=== PATIENT | male | born 1950 | race Caucasian/White ===

== ENCOUNTER 2017-08-19 15:24 | Inpatient (IN) | payer MEDICARE, SELFPAY ==
[2017-08-19] VITALS (16 sets, daily range): BP systolic 87–137; BP diastolic 70–111; PULSE 97–148; RESP 12–25; TEMP 36.1–38; O2SAT 97–100; BMI 32.4
--- NOTE | 2017-08-19 15:49 | ED.WEAKNESS ---
HPI - Weakness General Chief complaint: Weakness Stated complaint: LOW BLOOD PRESSURE,ELEVATED HR AND SOB Time Seen by Provider: 08/19/17 15:45 Source: patient Mode of arrival: ambulatory Limitations: no limitations History of Present Illness HPI Narrative: Patient presents to the emergency department today with a chief complaint of gradually worsening shortness of breath and weakness over the past few days which has been worsening. Last night he had a large amount of dark emesis. He denies any bright red blood or dark stools. He is dizzy, weak and lightheaded, particularly with standing up or any exertion. He denies any history of the same but has a longstanding history of alcohol abuse. He denies any history of EGD. He takes Motrin 800 daily for his back pain but denies any other NSAIDs or use of blood thinners. He denies any history of varices, ulcers or gastritis. MD Complaint: generalized weakness Onset (ago): day(s) Duration: constant Location: generalized Migration: none Severity: moderate Relieving factors: none Exacerbating factors: movement Associated symptoms: loss of appetite, nausea/vomiting and shortness of breath Related Data Home Medications Medication Instructions Recorded Confirmed trazodone 1 - 2 tab PO HSP PRN 08/19/17 08/19/17 Previous Rx's Medication Instructions Recorded atorvastatin [Lipitor] 20 mg PO HS #30 tab 11/24/16 venlafaxine [Effexor XR] 75 mg PO QDAY #90 cap 12/08/16 Allergies Allergy/AdvReac Type Severity Reaction Status Date / Time fentanyl [FENTANYL] Allergy Severe STOPPED Verified 08/19/17 15:30 BREATHING Review of Systems Review of Systems All systems reviewed & are unremarkable except as noted in HPI and below Constitutional Denies chills, Denies fever(s), Denies lethargy and Denies weakness Eyes Denies change in vision, Denies eye discharge, Denies irritation and Denies loss of vision ENT Ears, Nose, Mouth, and Throat: Denies change in voice, Denies neck pain and Denies sore throat Cardiovascular Denies chest pain, Denies irregular heart rhythm, Denies lightheadedness, Denies palpitations, Reports dyspnea, Denies dyspnea on exertion and Denies orthopnea Respiratory Denies cough, Reports dyspnea, Denies dyspnea on exertion and Denies wheezing Gastrointestinal Gastrointestinal: Denies abdominal pain, Denies change in bowel habits, Reports coffee ground emesis, Denies diarrhea, Reports nausea and Reports vomiting Genitourinary Denies hematuria, Denies flank pain, Denies urinary incontinence and Denies urinary urgency Musculoskeletal Denies neck pain Integumentary/Breasts Denies pruritus, Denies erythema, Denies rash and Denies wounds Neurologic Denies confusion, Denies loss of vision and Denies weakness Psychiatric Denies anxiety, Denies confusion, Denies depression, Denies homicidal ideation and Denies suicidal ideation Endocrine Denies palpitations Hematologic/Lymphatic Denies easy bruising Allergic/Immunologic Denies wheezing PFSH Surgical History History of hip replacement Social History Smoking Status: Never smoker Exam Narrative Exam Narrative: Pleasant 66-year-old male in moderate distress. Initial Vital Signs Initial Vital Signs: Vital Signs Temperature 97.0 F L 08/19/17 15:30 Pulse Rate 148 H 08/19/17 15:30 Respiratory Rate 20 08/19/17 15:30 Blood Pressure 134/77 H 08/19/17 15:30 Pulse Oximetry 100 08/19/17 15:30 Const General: cooperative, acute distress and ill appearing Nutritional Appearance: well nourished Orientation: alert, awake, oriented x3 and oriented to person [facility] Head: normocephalic and atraumatic Ears: external ears normal Nose: external nose normal and No nasal discharge Face and sinus: sinuses nontender, face symmetric, no sinus tenderness and No dry mucous membranes Mouth: oral mucosae normal and moist mucous membranes Teeth and gingiva: dentition normal Throat: tonsils normal and uvula midline Eyes General: appearance normal, both eyes and all related structures Conjunctivae: conjunctival abnormality (Pale) bilaterally Sclera: sclerae normal Pupils: PERRL EOM: EOM intact bilaterally Resp Effort & Inspection: normal respiratory effort, able to speak in complete sentences, no respiratory distress and no use of accessory muscles Auscultation: clear to auscultation bilaterally, no rales, no rhonchi and no wheezes Cardio Rate: tachycardic Rhythm: regular rhythm Heart Sounds: no click, no gallops, no murmurs and no rubs Pulses: normal peripheral pulses GI Inspection: non-distended Palpation: soft, no hepatosplenomegaly, No guarding, No pulsatile mass and No tender Auscultation: normal bowel sounds Skin General: pallor and cool/cold Neuro General: alert, oriented x3, gait normal and no focal motor deficits Speech: speech normal Course Orders Ordered: ED Orders 08/19/17 15:41 EKG-12 Lead Stat 08/19/17 15:47 Packed Cells Stat Type and Screen Stat 08/19/17 15:48 Alanine Aminotransferase Stat Aspartate Aminotransferase Stat Basic Metabolic Panel Stat Complete Blood Count AUTO DIFF Stat Lipase Stat Prothrombin Time INR Stat Troponin I Stat 08/19/17 16:27 XR chest 1V Stat Sodium Chloride (Normal Saline 0.9%) 1,000 mls @ 150 mls/hr IV CONT DARIEL Last Admin: 08/19/17 16:16 Dose: Discontinued Medications Pantoprazole Sodium (Protonix) 40 mg IV NOW ONE Stop: 08/19/17 16:39 Last Admin: 08/19/17 16:39 Dose: 40 mg Consultations Consultation #1: Called to on-call general surgery to be sure they are comfortable providing surgical backup and likely endoscopy given patient's history of alcohol abuse. Dr. Covarrubias is happy to be involved given the unlikely event varices in this patient pending results of lab tests Time: 16:38 Consultation #2: Dr. Hernandez happy to accept. Time: 18:50 Vital Signs - 8 hr 08/19/17 15:30 08/19/17 16:05 08/19/17 16:14 Temperature 97.0 F L Pulse Rate 148 H 112 H Pulse Rate [Orthostatic Lying] 106 H Pulse Rate [Orthostatic Sitting] 117 H Pulse Rate [Orthostatic Standing] 140 H Respiratory Rate 20 22 Blood Pressure 134/77 H Blood Pressure [Left Arm] 112/81 H Blood Pressure [Orthostatic Lying] 112/81 H Blood Pressure [Orthostatic Sitting] 87/72 L Blood Pressure [Orthostatic Standing] 96/84 H Pulse Oximetry 100 100 08/19/17 16:16 08/19/17 16:44 08/19/17 17:00 Temperature Pulse Rate 127 H 109 H 106 H Pulse Rate [Orthostatic Lying] Pulse Rate [Orthostatic Sitting] Pulse Rate [Orthostatic Standing] Respiratory Rate 14 22 20 Blood Pressure Blood Pressure [Left Arm] 101/82 H 110/84 H 91/73 Blood Pressure [Orthostatic Lying] Blood Pressure [Orthostatic Sitting] Blood Pressure [Orthostatic Standing] Pulse Oximetry 100 100 100 08/19/17 17:41 08/19/17 17:48 08/19/17 18:05 Temperature 100.3 F H 99.8 F H 99.8 F H Pulse Rate 106 H 112 H 112 H Pulse Rate [Orthostatic Lying] Pulse Rate [Orthostatic Sitting] Pulse Rate [Orthostatic Standing] Respiratory Rate 16 25 H 18 Blood Pressure 115/81 H 118/90 H 114/70 Blood Pressure [Left Arm] Blood Pressure [Orthostatic Lying] Blood Pressure [Orthostatic Sitting] Blood Pressure [Orthostatic Standing] Pulse Oximetry 08/19/17 18:33 Temperature 100.4 F H Pulse Rate 110 H Pulse Rate [Orthostatic Lying] Pulse Rate [Orthostatic Sitting] Pulse Rate [Orthostatic Standing] Respiratory Rate 14 Blood Pressure 134/91 H Blood Pressure [Left Arm] Blood Pressure [Orthostatic Lying] Blood Pressure [Orthostatic Sitting] Blood Pressure [Orthostatic Standing] Pulse Oximetry MDM - Weakness Differential Diagnosis Differential diagnosis: Likely anemia, hypoglycemia, rhabdomyolysis, sepsis and dehydration Medical Records Attestation: I reviewed the patient's medical records. Lab Data Result diagrams: 08/19/17 15:48 08/19/17 15:48 Lab Results 08/19/17 08/19/17 08/19/17 Range/Units 15:47 15:48 15:48 WBC 13.4 H (4.5-11.0) X10^3/uL RBC 3.15 L (4.5-5.9) X10^6/uL Hgb 7.9 L (13.5-17.5) g/dL Hct 25.5 L (41-53) % MCV 81.1 (80-100) fL MCH 25.2 L (26-34) PG MCHC 31.0 (30-36) % RDW 21.8 H (11.6-14.8) % Plt Count 244 (150-400) X10^3/uL Neut % (Auto) 72.9 (50-75) % Lymph % (Auto) 16.8 L (25-40) % [place] % (Auto) 9.1 (3-14) % Eos % (Auto) 0.5 L (2-4) % Baso % (Auto) 0.7 (0-2) % Neut # (Auto) 9800 H (6050-5454) /uL RBC Morphology Not Reportable Polychromasia 2+ H Hypochromasia 2+ H Anisocytosis 2+ H PT 12.9 H (10.1-12.7) SECONDS INR 1.2 (0.9-1.3) Sodium (137-145) mmol/L Potassium (3.4-5.1) mmol/L Chloride (98-107) mmol/L Carbon Dioxide (22-32) mmol/L BUN (9-20) mg/dL Creatinine (0.66-1.25) mg/dL Estimated GFR (>60) mL/min BUN/Creatinine Ratio (6-22) Glucose (80-110) mg/dL Calcium (8.4-10.2) mg/dL AST (17-59) IU/L ALT (21-72) IU/L Troponin I (0.01-0.034) ng/mL Lipase (23-300) U/L Blood Type O Positive Antibody Screen Negative Crossmatch ([facility]) See Detail 08/19/17 08/19/17 08/19/17 Range/Units 15:48 15:48 15:48 WBC (4.5-11.0) X10^3/uL RBC (4.5-5.9) X10^6/uL Hgb (13.5-17.5) g/dL Hct (41-53) % MCV (80-100) fL MCH (26-34) PG MCHC (30-36) % RDW (11.6-14.8) % Plt Count (150-400) X10^3/uL Neut % (Auto) (50-75) % Lymph % (Auto) (25-40) % [place] % (Auto) (3-14) % Eos % (Auto) (2-4) % Baso % (Auto) (0-2) % Neut # (Auto) (1291-9385) /uL RBC Morphology Polychromasia Hypochromasia Anisocytosis PT (10.1-12.7) SECONDS INR (0.9-1.3) Sodium 141 (137-145) mmol/L Potassium 3.9 (3.4-5.1) mmol/L Chloride 99 (98-107) mmol/L Carbon Dioxide 20 L (22-32) mmol/L BUN 47 H (9-20) mg/dL Creatinine 1.20 (0.66-1.25) mg/dL Estimated GFR > 60.0 (>60) mL/min BUN/Creatinine Ratio 39.2 H (6-22) Glucose 129 H (80-110) mg/dL Calcium 10.2 (8.4-10.2) mg/dL AST 59 (17-59) IU/L ALT 37 (21-72) IU/L Troponin I < 0.012 (0.01-0.034) ng/mL Lipase (23-300) U/L Blood Type Cancelled Antibody Screen Cancelled Crossmatch ([facility]) 08/19/17 Range/Units 15:48 WBC (4.5-11.0) X10^3/uL RBC (4.5-5.9) X10^6/uL Hgb (13.5-17.5) g/dL Hct (41-53) % MCV (80-100) fL MCH (26-34) PG MCHC (30-36) % RDW (11.6-14.8) % Plt Count (150-400) X10^3/uL Neut % (Auto) (50-75) % Lymph % (Auto) (25-40) % [place] % (Auto) (3-14) % Eos % (Auto) (2-4) % Baso % (Auto) (0-2) % Neut # (Auto) (6212-3469) /uL RBC Morphology Polychromasia Hypochromasia Anisocytosis PT (10.1-12.7) SECONDS INR (0.9-1.3) Sodium (137-145) mmol/L Potassium (3.4-5.1) mmol/L Chloride (98-107) mmol/L Carbon Dioxide (22-32) mmol/L BUN (9-20) mg/dL Creatinine (0.66-1.25) mg/dL Estimated GFR (>60) mL/min BUN/Creatinine Ratio (6-22) Glucose (80-110) mg/dL Calcium (8.4-10.2) mg/dL AST (17-59) IU/L ALT (21-72) IU/L Troponin I (0.01-0.034) ng/mL Lipase 225 (23-300) U/L Blood Type Antibody Screen Crossmatch ([facility]) Discharge Plan Departure Patient Disposition: Admitted As Inpatient Clinical Impression: Acute upper gastrointestinal bleeding Prescriptions: No Action atorvastatin [Lipitor] 20 MG tablet 20 mg PO HS Qty: 30 RF: 0 venlafaxine [Effexor XR] 75 MG capsule,extended release 24hr 75 mg PO QDAY Qty: 90 RF: 1 trazodone 50 MG tablet 1 - 2 tab PO HSP PRN (Reason: Insomnia) RF: 0
[2017-08-19 16:01] LABS: Add Manual Diff / Slide Review NO; Basophils Percent Auto 0.7 % (0-2); Eosinophils Percent Auto 0.5 % (2-4); Hematocrit 25.5 % (41-53); Hemoglobin 7.9 g/dL (13.5-17.5); Lymphocytes Percent Auto 16.8 % (25-40); Mean Corpuscular Hemoglobin 25.2 PG (26-34); Mean Corpuscular Volume 81.1 fL (80-100); Monocytes Percent Auto 9.1 % (3-14); Neutrophils Absolute Auto 9800 /uL (3000-5900); Neutrophils Percent Auto 72.9 % (50-75); Platelet Count 244 X10^3/uL (150-400); Red Blood Cell Count 3.15 X10^6/uL (4.5-5.9); Red Cell Distribution Width 21.8 % (11.6-14.8); White Blood Cell Count 13.4 X10^3/uL (4.5-11.0)
[2017-08-19 16:09] LABS: INR 1.2 (0.9-1.3); Prothrombin Time 12.9 SECONDS (10.1-12.7)
--- NOTE | 2017-08-19 16:15 | PC.NURSE ---
Patient felt weak and dizzy during the standing portion of orthostatics so he sat back down.
--- NOTE | 2017-08-19 16:27 | DI.RAD.S_ITS ---
PROCEDURE: XR CHEST 1V INDICATIONS: anemia, sob TECHNIQUE: One view of the chest was acquired. COMPARISON: None. FINDINGS: Surgical changes and devices: None. Lungs and pleura: No pleural effusions or pneumothorax. Lungs are clear. Mediastinum: Mediastinal contours appear normal. Heart size is normal. Bones and chest wall: No suspicious bony lesions. Overlying soft tissues appear unremarkable. IMPRESSION: Elevated left hemidiaphragm to a mild degree. Linear atelectasis left lung base, stable over time. The source of new shortness of breath is not found. Dictated by: Jeremiah Daley M.D. on 08/19/2017 at 16:56 Approved by: Jeremiah Daley M.D. on 08/19/2017 at 16:56
[2017-08-19 16:36] LABS: BUN Creatinine Ratio 39.2 (6-22); Blood Urea Nitrogen 47 mg/dL (9-20); Calcium 10.2 mg/dL (8.4-10.2); Carbon Dioxide 20 mmol/L (22-32); Chloride 99 mmol/L (98-107); Estimated Glomerular Filt Rate > 60.0 mL/min (>60); Glucose 129 mg/dL (80-110); HEMOLYSIS < 15 (0-50); Potassium 3.9 mmol/L (3.4-5.1); Sodium 141 mmol/L (137-145)
[2017-08-19] MEDS: PANTOPRAZOLE 40 MG VIAL IV ×2 (16:39→22:56)
--- NOTE | 2017-08-19 16:50 | PC.NURSE ---
Pt states he has been a heavy drinker for 'many years'. Recently cut back dramatically and most recent drink Wednesday. Denies h/o GI bleed, esophogeal verices, black / bloody stool. Vomited x 1 yesterday after dinner 'dark'. Denies nausea now.
[2017-08-19 17:04] LABS: Hypochromasia 2+; Polychromasia 2+
[2017-08-19 17:05] LABS: Anisocytosis 2+
[2017-08-19 17:16] LABS: Troponin I < 0.012 ng/mL (0.01-0.034)
[2017-08-19 18:30] LABS: Alanine Aminotransferase 37 IU/L (21-72); Aspartate Aminotransferase 59 IU/L (17-59); Lipase 225 U/L (23-300)
--- NOTE | 2017-08-19 19:23 | PM.CN ---
History of Present Illness Date Patient Seen: 08/19/17 Time Patient Seen: 19:24 Chief complaint: LOW BLOOD PRESSURE,ELEVATED HR AND SOB Reason for consult: Symptomatic anemia and hematemesis Requesting provider: Elías Hernandez Narrative: 66-year-old male with prior history of alcohol abuse and alcoholic pancreatitis but no known cirrhosis of the liver presents the emergency department this evening with dizziness, lightheadedness, fatigue, and shortness of breath following a single episode him at emesis last evening. Patient states he was in his usual state of health and tolerated ate dinner consisting of roast beef, broccoli, and rice last night without dysphagia, nausea, or pain when shortly thereafter he began to feel unwell. He then vomited a single time of partially digested food and copious amounts of dark material. No bright red blood. He had a normal bowel movement yesterday prior to the episode but no bowel function since then. He is having absolutely no dysphagia, odynophagia, chest pain, or abdominal pain. He has no recent history of melena, hematochezia, or bright red blood per rectum. In fact, [facility] small benign polyps were removed. He has never had any similar episodes of hematemesis or anemia. He has no known ulcer disease. No known esophageal varices. He does, however, take ibuprofen at least 4 times per day on a scheduled basis for low back pain and has done so for 3 years now. His hemoglobin at admission was approximately 7.9. Surgical consultation is now obtained for symptomatic anemia and probable upper gastrointestinal hemorrhage. [facility] Medical History Colon polyps (Acute) Depression (Acute) Hyperlipidemia (Acute) Insomnia (Chronic) Low back pain (Chronic) Surgical History Colonoscopy planned (Inactive) Status post total hip replacement, right (Inactive) History of hip replacement Social History lives independently: Yes Smoking Status: Never smoker additional social history: Prior heavy drinker of alcohol daily. States he has not drink significant alcohol for about 8 years since his episode of alcoholic pancreatitis. Meds Home Medications Medication Instructions Recorded Confirmed Type atorvastatin [Lipitor] 20 mg PO HS #30 tab 11/24/16 08/19/17 Rx venlafaxine [Effexor XR] 75 mg PO QDAY #90 cap 12/08/16 08/19/17 Rx trazodone 1 - 2 tab PO HSP PRN 08/19/17 08/19/17 History Allergies Allergy/AdvReac Type Severity Reaction Status Date / Time fentanyl [FENTANYL] Allergy Severe STOPPED Verified 08/19/17 15:30 BREATHING Review of Systems Review of Systems All systems reviewed & are unremarkable except as noted in HPI and below Exam Vital Signs (past 8 hours): Vital Signs - 8 hr 08/19/17 15:30 08/19/17 16:05 08/19/17 16:14 Temperature 97.0 F L Pulse Rate 148 H 112 H Pulse Rate [Orthostatic Lying] 106 H Pulse Rate [Orthostatic Sitting] 117 H Pulse Rate [Orthostatic Standing] 140 H Respiratory Rate 20 22 Blood Pressure 134/77 H Blood Pressure [Left Arm] 112/81 H Blood Pressure [Orthostatic Lying] 112/81 H Blood Pressure [Orthostatic Sitting] 87/72 L Blood Pressure [Orthostatic Standing] 96/84 H Pulse Oximetry 100 100 08/19/17 16:16 08/19/17 16:44 08/19/17 17:00 Temperature Pulse Rate 127 H 109 H 106 H Pulse Rate [Orthostatic Lying] Pulse Rate [Orthostatic Sitting] Pulse Rate [Orthostatic Standing] Respiratory Rate 14 22 20 Blood Pressure Blood Pressure [Left Arm] 101/82 H 110/84 H 91/73 Blood Pressure [Orthostatic Lying] Blood Pressure [Orthostatic Sitting] Blood Pressure [Orthostatic Standing] Pulse Oximetry 100 100 100 08/19/17 17:41 08/19/17 17:48 08/19/17 18:05 Temperature 100.3 F H 99.8 F H 99.8 F H Pulse Rate 106 H 112 H 112 H Pulse Rate [Orthostatic Lying] Pulse Rate [Orthostatic Sitting] Pulse Rate [Orthostatic Standing] Respiratory Rate 16 25 H 18 Blood Pressure 115/81 H 118/90 H 114/70 Blood Pressure [Left Arm] Blood Pressure [Orthostatic Lying] Blood Pressure [Orthostatic Sitting] Blood Pressure [Orthostatic Standing] Pulse Oximetry 08/19/17 18:30 08/19/17 18:33 08/19/17 18:48 Temperature 100.4 F H 100 F H Pulse Rate 111 H 110 H 109 H Pulse Rate [Orthostatic Lying] Pulse Rate [Orthostatic Sitting] Pulse Rate [Orthostatic Standing] Respiratory Rate 18 14 20 Blood Pressure 134/91 H 122/89 H Blood Pressure [Left Arm] 137/111 H Blood Pressure [Orthostatic Lying] Blood Pressure [Orthostatic Sitting] Blood Pressure [Orthostatic Standing] Pulse Oximetry 100 08/19/17 19:00 08/19/17 19:06 Temperature 100.1 F H Pulse Rate 106 H 106 H Pulse Rate [Orthostatic Lying] Pulse Rate [Orthostatic Sitting] Pulse Rate [Orthostatic Standing] Respiratory Rate 22 14 Blood Pressure 124/84 H Blood Pressure [Left Arm] 124/99 H Blood Pressure [Orthostatic Lying] Blood Pressure [Orthostatic Sitting] Blood Pressure [Orthostatic Standing] Pulse Oximetry 99 Pulse Oximetry 99 Oxygen Delivery Method Room Air Narrative Exam Narrative: Patient is sitting upright in the gurney in the emergency department at the time my visit. He is in no acute distress. Alert oriented x3. He is receiving blood transfusion at the time of my evaluation. He denies dizziness or shortness of breath currently. Sclera nonicteric Neck is supple Chest clear to auscultation He is in sinus tachycardia at a rate of 116 beats per minute at the time of my visit. Blood pressure is 122/89. Abdomen is soft, nondistended, nontender, no masses. No hepatomegaly. No ascites. Extremities show no clubbing or cyanosis Objective Labs Result Diagrams: 08/19/17 15:48 08/19/17 15:48 Labs: Laboratory Results - last 24 hr 08/19/17 08/19/17 08/19/17 15:47 15:48 15:48 WBC 13.4 H RBC 3.15 L Hgb 7.9 L Hct 25.5 L MCV 81.1 MCH 25.2 L MCHC 31.0 RDW 21.8 H Plt Count 244 Neut % (Auto) 72.9 Lymph % (Auto) 16.8 L [place] % (Auto) 9.1 Eos % (Auto) 0.5 L Baso % (Auto) 0.7 Neut # (Auto) 9800 H RBC Morphology Not Reportable Polychromasia 2+ H Hypochromasia 2+ H Anisocytosis 2+ H PT 12.9 H INR 1.2 Sodium Potassium Chloride Carbon Dioxide BUN Creatinine Estimated GFR BUN/Creatinine Ratio Glucose Calcium AST ALT Troponin I Lipase Blood Type O Positive Antibody Screen Negative Crossmatch ([facility]) See Detail 08/19/17 08/19/17 08/19/17 15:48 15:48 15:48 WBC RBC Hgb Hct MCV MCH MCHC RDW Plt Count Neut % (Auto) Lymph % (Auto) [place] % (Auto) Eos % (Auto) Baso % (Auto) Neut # (Auto) RBC Morphology Polychromasia Hypochromasia Anisocytosis PT INR Sodium 141 Potassium 3.9 Chloride 99 Carbon Dioxide 20 L BUN 47 H Creatinine 1.20 Estimated GFR > 60.0 BUN/Creatinine Ratio 39.2 H Glucose 129 H Calcium 10.2 AST 59 ALT 37 Troponin I < 0.012 Lipase Blood Type Cancelled Antibody Screen Cancelled Crossmatch ([facility]) 08/19/17 15:48 WBC RBC Hgb Hct MCV MCH MCHC RDW Plt Count Neut % (Auto) Lymph % (Auto) [place] % (Auto) Eos % (Auto) Baso % (Auto) Neut # (Auto) RBC Morphology Polychromasia Hypochromasia Anisocytosis PT INR Sodium Potassium Chloride Carbon Dioxide BUN Creatinine Estimated GFR BUN/Creatinine Ratio Glucose Calcium AST ALT Troponin I Lipase 225 Blood Type Antibody Screen Crossmatch ([facility]) Assessment & Plan Plan: Plan: 66-year-old male with symptomatic anemia secondary to gastrointestinal hemorrhage likely of an upper intestinal source. His liver function tests, coagulation studies, and lipase are all within normal range. I doubt that he has esophageal varices secondary to undiagnosed cirrhosis, especially since he has no significant active alcohol intake per his report. Most likely diagnosis would be significant gastritis or gastric ulceration secondary to significant NSAID use. Possibility of duodenal ulcer as well. I doubt neoplasm but this is also a possibility. At this time the patient requires significant fluid and blood product resuscitation to stabilize his heart rate and blood pressure. Would continue to monitor his hemoglobin levels periodically in the event he has ongoing acute hemorrhage. I did mention to him that there is a small possibility of significant acute major hemorrhage would require more emergent intervention. Otherwise I would plan EGD tomorrow once he has been adequately volume resuscitated. Agree with proton pump inhibitor therapy and bowel rest at the moment. Obviously avoid all NSAIDs. I discussed the technical details of EGD under anesthesia with the patient. He requires anesthesia given his comorbid medical conditions, possibility of significant bleeding requiring prolonged endoscopic procedure, and his documented allergy to fentanyl which inhibits my ability to perform conscious sedation. Risks, benefits, and alternatives were explained. Risks including but not limited to anesthesia, aspiration, nondiagnostic study, missed lesion, esophageal perforation, gastric perforation, duodenal perforation, need for major thoracic surgery, need for major abdominal surgery, and all attendant risks of major surgery were explained at length. He also understands that even following successful intervention for an obvious bleeding source that recurrent bleeding in the future is a possibility. In that event he may require repeat EGD or other intervention. I also discussed the small possibility of esophageal varices being present as the source of his hemorrhage. He understands we are not adequate to deal with endoscopic control of varices at this institution. Under those circumstances he would require referral to a tertiary center where such facilities are available. However, many times that can be done electively as well which I have mentioned to him. I also discussed the small possibility of significant major acute bleeding that could not be controlled endoscopically therefore requiring urgent laparotomy and surgical intervention. He also understands and agrees to further transfusion as needed. All questions were answered to his satisfaction, and he voiced understanding. Consent was placed on the chart. We will proceed as above.
--- NOTE | 2017-08-19 19:40 | P.CONS_ITS ---
History of Present Illness Date Patient Seen: 08/19/17 Time Patient Seen: 19:24 Chief complaint: LOW BLOOD PRESSURE,ELEVATED HR AND SOB Reason for consult: Symptomatic anemia and hematemesis Requesting provider: Elías Hernandez Narrative: 66-year-old male with prior history of alcohol abuse and alcoholic pancreatitis but no known cirrhosis of the liver presents the emergency department this evening with dizziness, lightheadedness, fatigue, and shortness of breath following a single episode him at emesis last evening. Patient states he was in his usual state of health and tolerated ate dinner consisting of roast beef, broccoli, and rice last night without dysphagia, nausea, or pain when shortly thereafter he began to feel unwell. He then vomited a single time of partially digested food and copious amounts of dark material. No bright red blood. He had a normal bowel movement yesterday prior to the episode but no bowel function since then. He is having absolutely no dysphagia, odynophagia, chest pain, or abdominal pain. He has no recent history of melena, hematochezia , or bright red blood per rectum. In fact, [facility] only several small benign polyps were removed. He has never had any similar episodes of hematemesis or anemia. He has no known ulcer disease. No known esophageal varices. He does, however, take ibuprofen at least 4 times per day on a scheduled basis for low back pain and has done so for 3 years now. His hemoglobin at admission was approximately 7.9. Surgical consultation is now obtained for symptomatic anemia and probable upper gastrointestinal hemorrhage. [facility] Medical History Colon polyps (Acute) Depression (Acute) Hyperlipidemia (Acute) Insomnia (Chronic) Low back pain (Chronic) Surgical History Colonoscopy planned (Inactive) Status post total hip replacement, right (Inactive) History of hip replacement Social History lives independently: Yes Smoking Status: Never smoker additional social history: Prior heavy drinker of alcohol daily. States he has not drink significant alcohol for about 8 years since his episode of alcoholic pancreatitis. Meds Home Medications Medication Instructions Recorded Confirmed Type atorvastatin [Lipitor] 20 mg PO HS #30 tab 11/24/16 08/19/17 Rx venlafaxine [Effexor XR] 75 mg PO QDAY #90 cap 12/08/16 08/19/17 Rx trazodone 1 - 2 tab PO HSP PRN 08/19/17 08/19/17 History Allergies Allergy/AdvReac Type Severity Reaction Status Date / Time fentanyl [FENTANYL] Allergy Severe STOPPED Verified 08/19/17 15:30 BREATHING Review of Systems Review of Systems All systems reviewed & are unremarkable except as noted in HPI and below Exam Vital Signs (past 8 hours): Vital Signs - 8 hr 3 08/19/17 15:30 08/19/17 16:05 08/19/17 16:14 Temperature 97.0 F L Pulse Rate 148 H 112 H Pulse Rate [Orthostatic Lying] 106 H Pulse Rate [Orthostatic Sitting] 117 H Pulse Rate [Orthostatic Standing] 140 H Respiratory Rate 20 22 Blood Pressure 134/77 H Blood Pressure [Left Arm] 112/81 H Blood Pressure [Orthostatic Lying] 112/81 H Blood Pressure [Orthostatic Sitting] 87/72 L Blood Pressure [Orthostatic Standing] 96/84 H Pulse Oximetry 100 100 3 08/19/17 16:16 08/19/17 16:44 08/19/17 17:00 Temperature Pulse Rate 127 H 109 H 106 H Pulse Rate [Orthostatic Lying] Pulse Rate [Orthostatic Sitting] Pulse Rate [Orthostatic Standing] Respiratory Rate 14 22 20 Blood Pressure Blood Pressure [Left Arm] 101/82 H 110/84 H 91/73 Blood Pressure [Orthostatic Lying] Blood Pressure [Orthostatic Sitting] Blood Pressure [Orthostatic Standing] Pulse Oximetry 100 100 100 3 08/19/17 17:41 08/19/17 17:48 08/19/17 18:05 Temperature 100.3 F H 99.8 F H 99.8 F H Pulse Rate 106 H 112 H 112 H Pulse Rate [Orthostatic Lying] Pulse Rate [Orthostatic Sitting] Pulse Rate [Orthostatic Standing] Respiratory Rate 16 25 H 18 Blood Pressure 115/81 H 118/90 H 114/70 Blood Pressure [Left Arm] Blood Pressure [Orthostatic Lying] Blood Pressure [Orthostatic Sitting] Blood Pressure [Orthostatic Standing] Pulse Oximetry 3 08/19/17 18:30 08/19/17 18:33 08/19/17 18:48 Temperature 100.4 F H 100 F H Pulse Rate 111 H 110 H 109 H Pulse Rate [Orthostatic Lying] Pulse Rate [Orthostatic Sitting] Pulse Rate [Orthostatic Standing] Respiratory Rate 18 14 20 Blood Pressure 134/91 H 122/89 H Blood Pressure [Left Arm] 137/111 H Blood Pressure [Orthostatic Lying] Blood Pressure [Orthostatic Sitting] Blood Pressure [Orthostatic Standing] Pulse Oximetry 100 3 08/19/17 19:00 08/19/17 19:06 Temperature 100.1 F H Pulse Rate 106 H 106 H Pulse Rate [Orthostatic Lying] Pulse Rate [Orthostatic Sitting] Pulse Rate [Orthostatic Standing] Respiratory Rate 22 14 Blood Pressure 124/84 H Blood Pressure [Left Arm] 124/99 H Blood Pressure [Orthostatic Lying] Blood Pressure [Orthostatic Sitting] Blood Pressure [Orthostatic Standing] Pulse Oximetry 99 Pulse Oximetry 99 Oxygen Delivery Method Room Air Narrative Exam Narrative: Patient is sitting upright in the rney in the emergency department at the time my visit. He is in no acute distress. Alert oriented x3. He is receiving blood transfusion at the time of my evaluation. He denies dizziness or shortness of breath currently. Sclera nonicteric Neck is supple Chest clear to auscultation He is in sinus tachycardia at a rate of 116 beats per minute at the time of my visit. Blood pressure is 122/89. Abdomen is soft, nondistended, nontender, no masses. No hepatomegaly. No ascites. Extremities show no clubbing or cyanosis Objective Labs Result Diagrams: 08/19/17 15:48 08/19/17 15:48 Labs: Laboratory Results - last 24 hr 08/19/17 08/19/17 08/19/17 15:47 15:48 15:48 WBC 13.4 H RBC 3.15 L Hgb 7.9 L Hct 25.5 L MCV 81.1 MCH 25.2 L MCHC 31.0 RDW 21.8 H Plt Count 244 Neut % (Auto) 72.9 Lymph % (Auto) 16.8 L Adams % (Auto) 9.1 Eos % (Auto) 0.5 L Baso % (Auto) 0.7 Neut # (Auto) 9800 H RBC Morphology Not Reportable Polychromasia 2+ H Hypochromasia 2+ H Anisocytosis 2+ H PT 12.9 H INR 1.2 Sodium Potassium Chloride Carbon Dioxide BUN Creatinine Estimated GFR BUN/Creatinine Ratio Glucose Calcium AST ALT Troponin I Lipase Blood Type O Positive Antibody Screen Negative Crossmatch ([facility]) See Detail 08/19/17 08/19/17 08/19/17 15:48 15:48 15:48 WBC RBC Hgb Hct MCV MCH MCHC RDW Plt Count Neut % (Auto) Lymph % (Auto) Adams % (Auto) Eos % (Auto) Baso % (Auto) Neut # (Auto) RBC Morphology Polychromasia Hypochromasia Anisocytosis PT INR Sodium 141 Potassium 3.9 Chloride 99 Carbon Dioxide 20 L BUN 47 H Creatinine 1.20 Estimated GFR > 60.0 BUN/Creatinine Ratio 39.2 H Glucose 129 H Calcium 10.2 AST 59 ALT 37 Troponin I < 0.012 Lipase Blood Type Cancelled Antibody Screen Cancelled Crossmatch ([facility]) 08/19/17 15:48 WBC RBC Hgb Hct MCV MCH MCHC RDW Plt Count Neut % (Auto) Lymph % (Auto) Adams % (Auto) Eos % (Auto) Baso % (Auto) Neut # (Auto) RBC Morphology Polychromasia Hypochromasia Anisocytosis PT INR Sodium Potassium Chloride Carbon Dioxide BUN Creatinine Estimated GFR BUN/Creatinine Ratio Glucose Calcium AST ALT Troponin I Lipase 225 Blood Type Antibody Screen Crossmatch ([facility]) Assessment & Plan Plan: Plan: 66-year-old male with symptomatic anemia secondary to gastrointestinal hemorrhage likely of an upper intestinal source. His liver function tests, coagulation studies, and lipase are all within normal range. I doubt that he has esophageal varices secondary to undiagnosed cirrhosis, especially since he has no significant active alcohol intake per his report. Most likely diagnosis would be significant gastritis or gastric ulceration secondary to significant NSAID use. Possibility of duodenal ulcer as well. I doubt neoplasm but this is also a possibility. At this time the patient requires significant fluid and blood product resuscitation to stabilize his heart rate and blood pressure. Would continue to monitor his hemoglobin levels periodically in the event he has ongoing acute hemorrhage. I did mention to him that there is a small possibility of significant acute major hemorrhage would require more emergent intervention. Otherwise I would plan EGD tomorrow once he has been adequately volume resuscitated. Agree with proton pump inhibitor therapy and bowel rest at the moment. Obviously avoid all NSAIDs. I discussed the technical details of EGD under anesthesia with the patient. He requires anesthesia given his comorbid medical conditions, possibility of significant bleeding requiring prolonged endoscopic procedure, and his documented allergy to fentanyl which inhibits my ability to perform conscious sedation. Risks, benefits, and alternatives were explained. Risks including but not limited to anesthesia, aspiration, nondiagnostic study, missed lesion, esophageal perforation, gastric perforation, duodenal perforation, need for major thoracic surgery, need for major abdominal surgery, and all attendant risks of major surgery were explained at length. He also understands that even following successful intervention for an obvious bleeding source that recurrent bleeding in the future is a possibility. In that event he may require repeat EGD or other intervention. I also discussed the small possibility of esophageal varices being present as the source of his hemorrhage. He understands we are not adequate to deal with endoscopic control of varices at this institution. Under those circumstances he would require referral to a tertiary center where such facilities are available. However, many times that can be done electively as well which I have mentioned to him. I also discussed the small possibility of significant major acute bleeding that could not be controlled endoscopically therefore requiring urgent laparotomy and surgical intervention. He also understands and agrees to further transfusion as needed. All questions were answered to his satisfaction, and he voiced understanding. Consent was placed on the chart. We will proceed as above.
--- NOTE | 2017-08-19 21:07 | PM.HP.1 ---
History of Present Illness Chief complaint: LOW BLOOD PRESSURE,ELEVATED HR AND SOB Narrative: Gage Nuno is a 66 year old male presents with hematemesis and symptoms of dyspnea weakness tachycardia feeling very poorly. He has been taking ibuprofen about 4 per day for chronic back pain. No prior history of GI bleeding. Initially in the emergency room hemoglobin of 7. Patient History Medical History Colon polyps (Acute) Depression (Acute) Hyperlipidemia (Acute) Insomnia (Chronic) Low back pain (Chronic) Surgical History Colonoscopy planned (Inactive) Status post total hip replacement, right (Inactive) History of hip replacement Family & Social History Social History: household members none Prior Living Arrangements House lives independently Yes Safety & Behavioral: Feels Safe in Current Yes Environment Been Physically Hurt or No Threatened By a Person Suicidal Ideation Description None Suicide Plan Description No Plan Tobacco & Substance use: Tobacco type cannabis/marijuana Smoking Status Current some day smoker alcohol intake current alcohol intake frequency a few times a week Substance Use Type former substance user,marijuana Meds Home Medications Medication Instructions Recorded Confirmed Type atorvastatin [Lipitor] 20 mg PO HS #30 tab 11/24/16 08/19/17 Rx venlafaxine [Effexor XR] 75 mg PO QDAY #90 cap 12/08/16 08/19/17 Rx trazodone 1 - 2 tab PO HSP PRN 08/19/17 08/19/17 History Allergies Allergy/AdvReac Type Severity Reaction Status Date / Time fentanyl [FENTANYL] Allergy Severe STOPPED Verified 08/19/17 15:30 BREATHING Review of Systems Review of Systems All systems reviewed & are unremarkable except as noted in HPI and below Exam Vital Signs (past 8 hours): Vital Signs - 8 hr 08/19/17 15:30 08/19/17 16:05 08/19/17 16:14 Temperature 97.0 F L Pulse Rate 148 H 112 H Pulse Rate [Orthostatic Lying] 106 H Pulse Rate [Orthostatic Sitting] 117 H Pulse Rate [Orthostatic Standing] 140 H Respiratory Rate 20 22 Blood Pressure 134/77 H Blood Pressure [Left Arm] 112/81 H Blood Pressure [Orthostatic Lying] 112/81 H Blood Pressure [Orthostatic Sitting] 87/72 L Blood Pressure [Orthostatic Standing] 96/84 H Pulse Oximetry 100 100 08/19/17 16:16 08/19/17 16:44 08/19/17 17:00 Temperature Pulse Rate 127 H 109 H 106 H Pulse Rate [Orthostatic Lying] Pulse Rate [Orthostatic Sitting] Pulse Rate [Orthostatic Standing] Respiratory Rate 14 22 20 Blood Pressure Blood Pressure [Left Arm] 101/82 H 110/84 H 91/73 Blood Pressure [Orthostatic Lying] Blood Pressure [Orthostatic Sitting] Blood Pressure [Orthostatic Standing] Pulse Oximetry 100 100 100 08/19/17 17:41 08/19/17 17:48 08/19/17 18:05 Temperature 100.3 F H 99.8 F H 99.8 F H Pulse Rate 106 H 112 H 112 H Pulse Rate [Orthostatic Lying] Pulse Rate [Orthostatic Sitting] Pulse Rate [Orthostatic Standing] Respiratory Rate 16 25 H 18 Blood Pressure 115/81 H 118/90 H 114/70 Blood Pressure [Left Arm] Blood Pressure [Orthostatic Lying] Blood Pressure [Orthostatic Sitting] Blood Pressure [Orthostatic Standing] Pulse Oximetry 08/19/17 18:30 08/19/17 18:33 08/19/17 18:48 Temperature 100.4 F H 100 F H Pulse Rate 111 H 110 H 109 H Pulse Rate [Orthostatic Lying] Pulse Rate [Orthostatic Sitting] Pulse Rate [Orthostatic Standing] Respiratory Rate 18 14 20 Blood Pressure 134/91 H 122/89 H Blood Pressure [Left Arm] 137/111 H Blood Pressure [Orthostatic Lying] Blood Pressure [Orthostatic Sitting] Blood Pressure [Orthostatic Standing] Pulse Oximetry 100 08/19/17 19:00 08/19/17 19:06 08/19/17 19:35 Temperature 100.1 F H 100.0 F H Pulse Rate 106 H 106 H 108 H Pulse Rate [Orthostatic Lying] Pulse Rate [Orthostatic Sitting] Pulse Rate [Orthostatic Standing] Respiratory Rate 22 14 12 Blood Pressure 124/84 H 125/90 H Blood Pressure [Left Arm] 124/99 H Blood Pressure [Orthostatic Lying] Blood Pressure [Orthostatic Sitting] Blood Pressure [Orthostatic Standing] Pulse Oximetry 99 08/19/17 19:42 Temperature 99.5 F Pulse Rate 97 H Pulse Rate [Orthostatic Lying] Pulse Rate [Orthostatic Sitting] Pulse Rate [Orthostatic Standing] Respiratory Rate 18 Blood Pressure 122/92 H Blood Pressure [Left Arm] Blood Pressure [Orthostatic Lying] Blood Pressure [Orthostatic Sitting] Blood Pressure [Orthostatic Standing] Pulse Oximetry 97 Pulse Oximetry 97 Oxygen Delivery Method Room Air Narrative Exam Narrative: Pleasant male no acute distress HEENT exam unremarkable Neck supple Lungs clear Heart tachycardic Abdomen soft and mild generalized tenderness bowel sounds present Lower extremities no edema Skin warm and dry Neuro exam unremarkable Objective Labs Result Diagrams: 08/19/17 15:48 08/19/17 15:48 Labs: Laboratory Results - last 24 hr 08/19/17 08/19/17 08/19/17 15:47 15:48 15:48 WBC 13.4 H RBC 3.15 L Hgb 7.9 L Hct 25.5 L MCV 81.1 MCH 25.2 L MCHC 31.0 RDW 21.8 H Plt Count 244 Neut % (Auto) 72.9 Lymph % (Auto) 16.8 L Branch % (Auto) 9.1 Eos % (Auto) 0.5 L Baso % (Auto) 0.7 Neut # (Auto) 9800 H RBC Morphology Not Reportable Polychromasia 2+ H Hypochromasia 2+ H Anisocytosis 2+ H PT 12.9 H INR 1.2 Sodium Potassium Chloride Carbon Dioxide BUN Creatinine Estimated GFR BUN/Creatinine Ratio Glucose Calcium AST ALT Troponin I Lipase Blood Type O Positive Antibody Screen Negative Crossmatch ([facility]) See Detail 08/19/17 08/19/17 08/19/17 15:48 15:48 15:48 WBC RBC Hgb Hct MCV MCH MCHC RDW Plt Count Neut % (Auto) Lymph % (Auto) Branch % (Auto) Eos % (Auto) Baso % (Auto) Neut # (Auto) RBC Morphology Polychromasia Hypochromasia Anisocytosis PT INR Sodium 141 Potassium 3.9 Chloride 99 Carbon Dioxide 20 L BUN 47 H Creatinine 1.20 Estimated GFR > 60.0 BUN/Creatinine Ratio 39.2 H Glucose 129 H Calcium 10.2 AST 59 ALT 37 Troponin I < 0.012 Lipase Blood Type Cancelled Antibody Screen Cancelled Crossmatch ([facility]) 08/19/17 15:48 WBC RBC Hgb Hct MCV MCH MCHC RDW Plt Count Neut % (Auto) Lymph % (Auto) Branch % (Auto) Eos % (Auto) Baso % (Auto) Neut # (Auto) RBC Morphology Polychromasia Hypochromasia Anisocytosis PT INR Sodium Potassium Chloride Carbon Dioxide BUN Creatinine Estimated GFR BUN/Creatinine Ratio Glucose Calcium AST ALT Troponin I Lipase 225 Blood Type Antibody Screen Crossmatch ([facility]) Assessment & Plan Plan: Plan: One. Acute upper GI bleed with acute blood loss anemia hemoglobin 7 0.5. Patient with active bleeding and hematemesis would be appropriate for inpatient admission. Patient received 2 units of blood already plan to recheck hematocrit and if he is still hematocrit below 27 would give him another unit of blood. Surgery has been consulted they will be doing an EGD on him. Plan to place him on Protonix make him NPO and IV fluids for now hold the ibuprofen hold his other home meds for now. Quality VTE Deep Vein Thrombosis/Pulmonary Embolism Present on Admission: No
--- NOTE | 2017-08-19 21:10 | P.HP_ITS ---
History of Present Illness Chief complaint: LOW BLOOD PRESSURE,ELEVATED HR AND SOB Narrative: Gage Nuno is a 66 year old male presents with hematemesis and symptoms of dyspnea weakness tachycardia feeling very poorly. He has been taking ibuprofen about 4 per day for chronic back pain. No prior history of GI bleeding. Initially in the emergency room hemoglobin of 7. Patient History Medical History Colon polyps (Acute) Depression (Acute) Hyperlipidemia (Acute) Insomnia (Chronic) Low back pain (Chronic) Surgical History Colonoscopy planned (Inactive) Status post total hip replacement, right (Inactive) History of hip replacement Family & Social History Social History: household members none Prior Living Arrangements House lives independently Yes Safety & Behavioral: Feels Safe in Current Yes Environment Been Physically Hurt or No Threatened By a Person Suicidal Ideation Description None Suicide Plan Description No Plan Tobacco & Substance use: Tobacco type cannabis/marijuana Smoking Status Current some day smoker alcohol intake current alcohol intake frequency a few times a week Substance Use Type former substance user,marijuana Meds Home Medications Medication Instructions Recorded Confirmed Type atorvastatin [Lipitor] 20 mg PO HS #30 tab 11/24/16 08/19/17 Rx venlafaxine [Effexor XR] 75 mg PO QDAY #90 cap 12/08/16 08/19/17 Rx trazodone 1 - 2 tab PO HSP PRN 08/19/17 08/19/17 History Allergies Allergy/AdvReac Type Severity Reaction Status Date / Time fentanyl [FENTANYL] Allergy Severe STOPPED Verified 08/19/17 15:30 BREATHING Review of Systems Review of Systems All systems reviewed & are unremarkable except as noted in HPI and below Exam Vital Signs (past 8 hours): Vital Signs - 8 hr 3 08/19/17 15:30 08/19/17 16:05 08/19/17 16:14 Temperature 97.0 F L Pulse Rate 148 H 112 H Pulse Rate [Orthostatic Lying] 106 H Pulse Rate [Orthostatic Sitting] 117 H Pulse Rate [Orthostatic Standing] 140 H Respiratory Rate 20 22 Blood Pressure 134/77 H Blood Pressure [Left Arm] 112/81 H Blood Pressure [Orthostatic Lying] 112/81 H Blood Pressure [Orthostatic Sitting] 87/72 L Blood Pressure [Orthostatic Standing] 96/84 H Pulse Oximetry 100 100 3 08/19/17 16:16 08/19/17 16:44 08/19/17 17:00 Temperature Pulse Rate 127 H 109 H 106 H Pulse Rate [Orthostatic Lying] Pulse Rate [Orthostatic Sitting] Pulse Rate [Orthostatic Standing] Respiratory Rate 14 22 20 Blood Pressure Blood Pressure [Left Arm] 101/82 H 110/84 H 91/73 Blood Pressure [Orthostatic Lying] Blood Pressure [Orthostatic Sitting] Blood Pressure [Orthostatic Standing] Pulse Oximetry 100 100 100 3 08/19/17 17:41 08/19/17 17:48 08/19/17 18:05 Temperature 100.3 F H 99.8 F H 99.8 F H Pulse Rate 106 H 112 H 112 H Pulse Rate [Orthostatic Lying] Pulse Rate [Orthostatic Sitting] Pulse Rate [Orthostatic Standing] Respiratory Rate 16 25 H 18 Blood Pressure 115/81 H 118/90 H 114/70 Blood Pressure [Left Arm] Blood Pressure [Orthostatic Lying] Blood Pressure [Orthostatic Sitting] Blood Pressure [Orthostatic Standing] Pulse Oximetry 3 08/19/17 18:30 08/19/17 18:33 08/19/17 18:48 Temperature 100.4 F H 100 F H Pulse Rate 111 H 110 H 109 H Pulse Rate [Orthostatic Lying] Pulse Rate [Orthostatic Sitting] Pulse Rate [Orthostatic Standing] Respiratory Rate 18 14 20 Blood Pressure 134/91 H 122/89 H Blood Pressure [Left Arm] 137/111 H Blood Pressure [Orthostatic Lying] Blood Pressure [Orthostatic Sitting] Blood Pressure [Orthostatic Standing] Pulse Oximetry 100 3 08/19/17 19:00 08/19/17 19:06 08/19/17 19:35 Temperature 100.1 F H 100.0 F H Pulse Rate 106 H 106 H 108 H Pulse Rate [Orthostatic Lying] Pulse Rate [Orthostatic Sitting] Pulse Rate [Orthostatic Standing] Respiratory Rate 22 14 12 Blood Pressure 124/84 H 125/90 H Blood Pressure [Left Arm] 124/99 H Blood Pressure [Orthostatic Lying] Blood Pressure [Orthostatic Sitting] Blood Pressure [Orthostatic Standing] Pulse Oximetry 99 3 08/19/17 19:42 Temperature 99.5 F Pulse Rate 97 H Pulse Rate [Orthostatic Lying] Pulse Rate [Orthostatic Sitting] Pulse Rate [Orthostatic Standing] Respiratory Rate 18 Blood Pressure 122/92 H Blood Pressure [Left Arm] Blood Pressure [Orthostatic Lying] Blood Pressure [Orthostatic Sitting] Blood Pressure [Orthostatic Standing] Pulse Oximetry 97 Pulse Oximetry 97 Oxygen Delivery Method Room Air Narrative Exam Narrative: Pleasant male no acute distress HEENT exam unremarkable Neck supple Lungs clear Heart tachycardic Abdomen soft and mild generalized tenderness bowel sounds present Lower extremities no edema Skin warm and dry Neuro exam unremarkable Objective Labs Result Diagrams: 08/19/17 15:48 08/19/17 15:48 Labs: Laboratory Results - last 24 hr 08/19/17 08/19/17 08/19/17 15:47 15:48 15:48 WBC 13.4 H RBC 3.15 L Hgb 7.9 L Hct 25.5 L MCV 81.1 MCH 25.2 L MCHC 31.0 RDW 21.8 H Plt Count 244 Neut % (Auto) 72.9 Lymph % (Auto) 16.8 L Jenkins % (Auto) 9.1 Eos % (Auto) 0.5 L Baso % (Auto) 0.7 Neut # (Auto) 9800 H RBC Morphology Not Reportable Polychromasia 2+ H Hypochromasia 2+ H Anisocytosis 2+ H PT 12.9 H INR 1.2 Sodium Potassium Chloride Carbon Dioxide BUN Creatinine Estimated GFR BUN/Creatinine Ratio Glucose Calcium AST ALT Troponin I Lipase Blood Type O Positive Antibody Screen Negative Crossmatch ([facility]) See Detail 08/19/17 08/19/17 08/19/17 15:48 15:48 15:48 WBC RBC Hgb Hct MCV MCH MCHC RDW Plt Count Neut % (Auto) Lymph % (Auto) Jenkins % (Auto) Eos % (Auto) Baso % (Auto) Neut # (Auto) RBC Morphology Polychromasia Hypochromasia Anisocytosis PT INR Sodium 141 Potassium 3.9 Chloride 99 Carbon Dioxide 20 L BUN 47 H Creatinine 1.20 Estimated GFR > 60.0 BUN/Creatinine Ratio 39.2 H Glucose 129 H Calcium 10.2 AST 59 ALT 37 Troponin I < 0.012 Lipase Blood Type Cancelled Antibody Screen Cancelled Crossmatch ([facility]) 08/19/17 15:48 WBC RBC Hgb Hct MCV MCH MCHC RDW Plt Count Neut % (Auto) Lymph % (Auto) Jenkins % (Auto) Eos % (Auto) Baso % (Auto) Neut # (Auto) RBC Morphology Polychromasia Hypochromasia Anisocytosis PT INR Sodium Potassium Chloride Carbon Dioxide BUN Creatinine Estimated GFR BUN/Creatinine Ratio Glucose Calcium AST ALT Troponin I Lipase 225 Blood Type Antibody Screen Crossmatch ([facility]) Assessment & Plan Plan: Plan: One. Acute upper GI bleed with acute blood loss anemia hemoglobin 7 0.5. Patient with active bleeding and hematemesis would be appropriate for inpatient admission. Patient received 2 units of blood already plan to recheck hematocrit and if he is still hematocrit below 27 would give him another unit of blood. Surgery has been consulted they will be doing an EGD on him. Plan to place him on Protonix make him NPO and IV fluids for now hold the ibuprofen hold his other home meds for now. Quality VTE Deep Vein Thrombosis/Pulmonary Embolism Present on Admission: No
[2017-08-19 21:33] LABS: Hematocrit 27.6 % (41-53)
--- NOTE | 2017-08-19 22:52 | PC.NURSE ---
MD HISTORY STATES IF HCT < 27 TRANSFUSE I MORE UNIT,LAST HCT WAS 27.6 MD AWARE ORDER TO TRANSFUSE I UUNIT WAS D/CD BY
[2017-08-19] MEDS: DEXTROSE 5%-0.9% NS 1,000 ML 100 ML IV (22:57)
[2017-08-20] VITALS (16 sets, daily range): BP systolic 113–148; BP diastolic 76–100; PULSE 76–100; RESP 12–20; TEMP 36.6–37.3; O2SAT 20–99; BMI 31.3
--- NOTE | 2017-08-20 03:58 | PC.NURSE ---
Noc shift note: Patient sleeping between care, easily arousable. VSS. O2 sat 96% on RA. No c/o dizziness, SOB or nausea. Continues NPO, IVF infusing as ordered, call light within reach.
[2017-08-20 06:10] LABS: Add Manual Diff / Slide Review NO; Basophils Percent Auto 0.9 % (0-2); Eosinophils Percent Auto 4.4 % (2-4); Hematocrit 26.1 % (41-53); Hemoglobin 8.9 g/dL (13.5-17.5); Lymphocytes Percent Auto 20.4 % (25-40); Mean Corpuscular Hemoglobin 27.5 PG (26-34); Mean Corpuscular Volume 80.9 fL (80-100); Monocytes Percent Auto 14.1 % (3-14); Neutrophils Absolute Auto 4600 /uL (3000-5900); Neutrophils Percent Auto 60.2 % (50-75); Platelet Count 140 X10^3/uL (150-400); Red Blood Cell Count 3.23 X10^6/uL (4.5-5.9); Red Cell Distribution Width 19.9 % (11.6-14.8); White Blood Cell Count 7.6 X10^3/uL (4.5-11.0)
[2017-08-20 06:18] LABS: Blood Urea Nitrogen 36 mg/dL (9-20); Calcium 8.8 mg/dL (8.4-10.2); Carbon Dioxide 28 mmol/L (22-32); Chloride 106 mmol/L (98-107); Estimated Glomerular Filt Rate > 60.0 mL/min (>60); Glucose 103 mg/dL (80-110); HEMOLYSIS < 15 (0-50); Sodium 141 mmol/L (137-145)
[2017-08-20] MEDS: DEXTROSE 5%-0.9% NS 1,000 ML 100 ML IV (07:46)
[2017-08-20] MEDS: PANTOPRAZOLE 40 MG VIAL IV (08:24)
--- NOTE | 2017-08-20 11:02 | P.PN_ITS ---
Subjective Date Patient Seen: 08/20/17 Time Patient Seen: 11:00 Interval history: No more hematemesis. EGD scheduled for this afternoon Exam Vital Signs (past 8 hours): Vital Signs - 8 hr 3 08/20/17 03:56 08/20/17 07:35 Temperature 98.1 F 98.6 F Pulse Rate 79 84 Respiratory Rate 16 16 Blood Pressure 113/76 134/86 H Pulse Oximetry 96 95 Pulse Oximetry 95 Oxygen Delivery Method Room Air Narrative Exam Narrative: Awake alert resting quietly HEENT exam unremarkable Neck is supple Lungs clear Heart regular rhythm Abdomen obese nontender Extremities no edema Neuro exam unremarkable Skin warm and dry Objective Labs Result Diagrams: 08/20/17 05:32 08/20/17 05:32 Labs: Laboratory Results - last 24 hr 08/19/17 08/19/17 08/19/17 15:47 15:48 15:48 WBC 13.4 H RBC 3.15 L Hgb 7.9 L Hct 25.5 L MCV 81.1 MCH 25.2 L MCHC 31.0 RDW 21.8 H Plt Count 244 Neut % (Auto) 72.9 Lymph % (Auto) 16.8 L Hamilton % (Auto) 9.1 Eos % (Auto) 0.5 L Baso % (Auto) 0.7 Neut # (Auto) 9800 H RBC Morphology Not Reportable Polychromasia 2+ H Hypochromasia 2+ H Anisocytosis 2+ H PT 12.9 H INR 1.2 Sodium Potassium Chloride Carbon Dioxide BUN Creatinine Estimated GFR BUN/Creatinine Ratio Glucose Calcium AST ALT Troponin I Lipase Blood Type O Positive Antibody Screen Negative Crossmatch (AHG) See Detail 08/19/17 08/19/17 08/19/17 15:48 15:48 15:48 WBC RBC Hgb Hct MCV MCH MCHC RDW Plt Count Neut % (Auto) Lymph % (Auto) Hamilton % (Auto) Eos % (Auto) Baso % (Auto) Neut # (Auto) RBC Morphology Polychromasia Hypochromasia Anisocytosis PT INR Sodium 141 Potassium 3.9 Chloride 99 Carbon Dioxide 20 L BUN 47 H Creatinine 1.20 Estimated GFR > 60.0 BUN/Creatinine Ratio 39.2 H Glucose 129 H Calcium 10.2 AST 59 ALT 37 Troponin I < 0.012 Lipase Blood Type Cancelled Antibody Screen Cancelled Crossmatch (AHG) 08/19/17 08/19/17 08/20/17 15:48 21:20 05:32 WBC 7.6 RBC 3.23 L Hgb 8.9 L Hct 27.6 L 26.1 L MCV 80.9 MCH 27.5 MCHC 34.0 RDW 19.9 H Plt Count 140 L Neut % (Auto) 60.2 Lymph % (Auto) 20.4 L Hamilton % (Auto) 14.1 H Eos % (Auto) 4.4 H Baso % (Auto) 0.9 Neut # (Auto) 4600 RBC Morphology Polychromasia Hypochromasia Anisocytosis PT INR Sodium Potassium Chloride Carbon Dioxide BUN Creatinine Estimated GFR BUN/Creatinine Ratio Glucose Calcium AST ALT Troponin I Lipase 225 Blood Type Antibody Screen Crossmatch (AHG) 08/20/17 05:32 WBC RBC Hgb Hct MCV MCH MCHC RDW Plt Count Neut % (Auto) Lymph % (Auto) Hamilton % (Auto) Eos % (Auto) Baso % (Auto) Neut # (Auto) RBC Morphology Polychromasia Hypochromasia Anisocytosis PT INR Sodium 141 Potassium 4.0 Chloride 106 Carbon Dioxide 28 BUN 36 H Creatinine 1.20 Estimated GFR > 60.0 BUN/Creatinine Ratio 30.0 H Glucose 103 Calcium 8.8 AST ALT Troponin I Lipase Blood Type Antibody Screen Crossmatch (AHG) Assessment & Plan Plan: Plan: One. Acute upper GI bleed with acute blood loss anemia status post 3 unit transfusion hemoglobin stabilized at 8.9. No more hematemesis currently. EGD pending. Plan to recheck hematocrit this afternoon at 3 and then tomorrow morning to ensure stability possible discharge at that time tomorrow morning. Quality VTE Deep Vein Thrombosis/Pulmonary Embolism Present on Admission: No
--- NOTE | 2017-08-20 11:31 | PC.NURSE ---
Addendum entered by Dorene Vieira R.N. 08/20/17 14:34: pt returned from EGD at 1400. Denies pain. Drowsy but oriented. No N/V. O2 sats = 88% on RA. Encouraged use of IS and now at 94% on RA after deep breathing. Waiting for dietary orders. Original Note: Addendum entered by Dorene Vieira R.N. 08/20/17 14:34: Original Note: Pt taken to OR for EGD. Sister went with him. IV saline locked.
--- NOTE | 2017-08-20 13:24 | SUR.OPER ---
to endo from opd via bed procedure on bed in supine positione
--- NOTE | 2017-08-20 13:58 | P.OP.ENDO_ITS ---
Operative Date/Time/Diagnoses - Date of procedure: 08/20/17 Time of procedure: 13:50 Pre-op diagnosis: Upper gastrointestinal hemorrhage Post-op diagnosis: same (Upper gastrointestinal hemorrhage Secondary to duodenal ulcer) Procedure & Clinicians Study performed: Esophagogastroduodenoscopy Same procedure as scheduled: Yes Indications: 66-year-old male who presented with hematemesis and symptomatic anemia. Examination and evaluation were consistent with upper gastrointestinal hemorrhage. Following transfusion and volume resuscitation EGD was recommended. Surgeon: Elías Covarrubias Procedure Notes SCOAP/Timeout: Yes Procedure in detail: After obtaining informed consent the patient was brought to the endoscopy suite and left supine on the bed. He require general anesthesia due to his anemia, significant alcohol intake history, allergy to fentanyl, and potential need for prolonged endoscopic procedure for upper gastrointestinal bleeding source. After satisfactory induction of anesthesia a bite block was inserted. A SCOAP time-out was performed per standard protocol. Gastroscope was placed over the tongue to the oropharynx through the upper esophageal sphincter was identified in easily intubated. Under direct visualization of the esophageal lumen the scope was advanced distally into the stomach which insufflated easily with air. There was minimal gastritis in the pyloric channel but no evidence of gastric ulcers or neoplasms. No fresh or old blood. Retroflexed view in the stomach revealed normal incisura, cardia, and fundus. No hiatal hernia was noted. Pylorus was grossly normal without evidence of stricture or ulcers. Pylorus was widely patent and easily intubated. Scope was advanced to the distal 2nd portion of the duodenum. Duodenum was meticulously and circumferentially examined as the scope was slowly withdrawn. Findings were as above. Bleeding source appeared to be secondary to peptic ulcer at the junction of the 1st and 2nd portion of the duodenum. No intervention was required since there was no exposed vessel, no clot, no active bleeding. No duodenal neoplasms or strictures were identified. Scope was withdrawn back into the stomach and again the entire stomach was noted to be normal other than mild gastritis in the pyloric channel. Stomach was decompressed and the scope was withdrawn back into the esophagus at the gastroesophageal junction. Z-line was located 40 cm from the incisors. Gastroesophageal junction was entirely normal without evidence of varices or other abnormalities. No esophagitis. Esophagus was meticulously and circumferentially examined as the scope was withdrawn slowly. No other abnormalities were appreciated. Esophagus was essentially normal. Scope was removed through the mouth and the procedure was terminated. Bite block was removed. Anesthesia was reversed and the patient extubated in the endoscopy suite. He was taken recovery in stable condition having experience no obvious complications. Scope withdrawal time: Not applicable Sedation minutes: 0 (See anesthesia record) Findings: duodenal ulcer (At junction of 1st and 2nd portion of the duodenum with no exposed vessel, clot, or active bleeding) and other findings ( Duodenitis and adjacent healed old ulcer in duodenum) Specimen(s): none sent Complications: none Recommendations: No ASA/NSAIDS (Absolutely recommend stopping all NSAIDs including his daily ibuprofen) and Start medication(s) (Proton pump inhibitor daily for 30 days) Plan for aftercare: 1. Return to regular floor for ongoing recovery 2. Allow peptic ulcer diet 3. Continue PPI 4. May discharged home at any time from surgical perspective if remains stable without evidence of further bleeding Follow up: as needed Disposition: PACU
--- NOTE | 2017-08-20 14:57 | CM.DANOTE ---
DCP: assessment: EMR reviewed and noted that pt was currently in process of d/c from PACU to his room. Met with his sister Rosemarie to discuss POC and d/c plan. Pt had designated her as his advocate as she is a prison nurse. She has been at bedside, will return to [facility] and back to [facility] tomorrow. DCP assessment template completed with info available at this time. Pt is a 66 year old male who admitted yesterday evening to care of hospitalist team. Entry Level Financial Analyst: surgeon: Dr. Covarrubias (EGD was just completed). Dr. Hernandez documents his intention to check pt's hct tomorrow and, it stable, pt will d/c back to his home on [address]. Rosemarie confirms she has been updated by Dr. Covarrubias and Dr. Hernandez. P: home tomorrow if stable for same.
[2017-08-20] MEDS: VENLAFAXINE ER 75 MG CAP PO (16:47)
[2017-08-20] MEDS: ATORVASTATIN 20 MG TABLET PO (21:37)
[2017-08-20 21:46] LABS: Hematocrit 27.6 % (41-53)
[2017-08-20] MEDS: TRAZODONE 100 MG TABLET PO (22:53)
[2017-08-21 00:09] VITALS: O2SAT 97
--- NOTE | 2017-08-21 00:09 | PC.NURSE ---
Alert and oriented. Breath sounds CTA with RA sat of 97%. HRR with rate in upper 80's. Denies nausea. BT present and is passing flatus. Denies dysuria, frequency, urgency or incontinence. Independent with mobility and denies unsteadiness, weakness or lightheadedness; reminded to call for assist should he develop any abnormal sx. Fall risk score is medium but due to alertness and stability bed alarm is not being used.
[2017-08-21 05:17] VITALS: BP 132/97; PULSE 89; RESP 19; TEMP 36.7; O2SAT 95
[2017-08-21 06:05] LABS: Basophils Percent Auto 0.9 % (0-2); Eosinophils Percent Auto 4.9 % (2-4); Hematocrit 25.6 % (41-53); Hemoglobin 8.4 g/dL (13.5-17.5); Lymphocytes Percent Auto 21.3 % (25-40); Mean Corpuscular Hemoglobin 26.9 PG (26-34); Mean Corpuscular Volume 81.7 fL (80-100); Monocytes Percent Auto 12.9 % (3-14); Neutrophils Absolute Auto 3300 /uL (3000-5900); Platelet Count 141 X10^3/uL (150-400); Red Blood Cell Count 3.13 X10^6/uL (4.5-5.9); Red Cell Distribution Width 20.5 % (11.6-14.8); White Blood Cell Count 5.6 X10^3/uL (4.5-11.0)
[2017-08-21 06:09] LABS: Add Manual Diff / Slide Review SLIDE REVIEW
[2017-08-21 06:41] LABS: Anisocytosis 2+; Polychromasia 1+
[2017-08-21 06:42] LABS: Hypochromasia 2+
[2017-08-21 07:00] VITALS: O2SAT 95
[2017-08-21 07:38] VITALS: BP 151/104; PULSE 79; RESP 14; TEMP 37; O2SAT 96
[2017-08-21] MEDS: VENLAFAXINE ER 75 MG CAP PO (09:21)
[2017-08-21] MEDS: PANTOPRAZOLE 40 MG VIAL IV (09:21)
--- NOTE | 2017-08-21 09:23 | PM.DS.1 ---
History of Present Illness Chief complaint: LOW BLOOD PRESSURE,ELEVATED HR AND SOB Narrative: Gage Nuno is a 66 year old male Gage Nuno is a 66 year old male presents with hematemesis and symptoms of dyspnea weakness tachycardia feeling very poorly. He has been taking ibuprofen about 4 per day for chronic back pain. No prior history of GI bleeding. Initially in the emergency room hemoglobin of 7. Discharge Providers Date of admission: 08/19/17 19:06 Primary care physician: ALETHA Ramírez Discharge provider: Elías Hernandez MD Summary Discharge Diagnosis: ONE. ACUTE UPPER GI BLEED WITH ACUTE BLOOD LOSS ANEMIA SECONDARY TO ACUTE DUODENAL ULCER Hospital Course: PATIENT ADMITTED WITH ACUTE UPPER GI BLEED WITH HEMATEMESIS FOUND TO HAVE ACUTE ANEMIA BLOOD LOSS. THE PATIENT REQUIRED 3 UNITS BLOOD TRANSFUSION UNDERWENT ENDOSCOPY SHOWING DUODENAL ULCER THAT WAS NOT ACTIVELY BLEEDING AT THE TIME. HIS DISCHARGE HEMOGLOBIN IS 8.4 AND HIS ADMISSION HEMOGLOBIN WAS 7.9 HE RECEIVED 3 UNITS OF PACKED RED CELLS. THE PATIENT WILL BE DISCHARGED HOME ON OMEPRAZOLE 40 MG A DAY AND AFFAIRS CLUE CAN 8 TWICE A DAY. HE WILL FOLLOW UP WITH HIS PRIMARY CARE PHYSICIAN DR. AMAYA NEXT WEEK AND HE IS INSTRUCTED NOT TO TAKE ANY ANTI-INFLAMMATORY MEDICATIONS Status at Discharge Functional status at discharge: independent ambulation Overall status at discharge: patient is back to baseline Time Spent with Patient Greater than 30 minutes Exam Vital Signs (past 8 hours): Vital Signs - 8 hr 08/21/17 05:17 08/21/17 07:00 08/21/17 07:38 Temperature 98.0 F 98.6 F Pulse Rate 89 79 Respiratory Rate 19 14 Blood Pressure 132/97 H 151/104 H Pulse Oximetry 95 95 96 Pulse Oximetry 96 Oxygen Delivery Method Room Air Oxygen Flow Rate 0 Objective Labs Result Diagrams: 08/21/17 05:32 08/20/17 05:32 Labs: Laboratory Results - last 24 hr 08/20/17 08/21/17 21:20 05:32 WBC 5.6 RBC 3.13 L Hgb 8.4 L Hct 27.6 L 25.6 L MCV 81.7 MCH 26.9 MCHC 33.0 RDW 20.5 H Plt Count 141 L Neut % (Auto) 60.0 Lymph % (Auto) 21.3 L Grant % (Auto) 12.9 Eos % (Auto) 4.9 H Baso % (Auto) 0.9 Neut # (Auto) 3300 RBC Morphology Not Reportable Polychromasia 1+ H Hypochromasia 2+ H Anisocytosis 2+ H Discharge Plan Discharge Plan Patient Disposition: Home, Self-Care Discharge comment: follow up with Dr. Amaya next week. Provider Discharge Instructions Diet: Diet as Tolerated Other treatments: DO NOT USE ANTI-INFLAMMATORY MEDICATIONS Visit Report/Discharge Packet Print Language: Cameroonian Discharge Data Primary Care Provider: Danisha Antonio Attending Provider: Elías Hernandez Admit Date/Time: 08/19/17 19:06 Quality VTE Deep Vein Thrombosis/Pulmonary Embolism Present on Admission: No
--- NOTE | 2017-08-21 10:24 | CM.DPC ---
DCP Ongoing, and d/c today: Met with patient who already has d/c orders this morning. States he plans to drive himself home to [place] and feels good with this decision; safety of this idea is confirmed with his AM nurse Mercedes who feels patient is perfectly capable of doing this safely. He awaits d/c instructions and priority ferry boarding pass from Mercedes. Patient earlier reported to his RN that he was concerned that registration did not take his insurance cards. This DCP confirmed his MCR card and number and AARP card and number as being what we have on record on his face sheet. Pt relieved at this. Pt states he has no other concerns and plans to return home with self care, no services needed. Alessandra Robins RN
--- NOTE | 2017-08-21 10:30 | PC.NURSE ---
DAY SHIFT: Pt left unit at approx 1030. Has all personal belongings as well as paperwork/info. All questions answered. Has priority boarding pass for [place]. scrips in the red folder. His VS have been WNL. He tolerated his breakfast as well.
== END 2017-08-21 10:47 | disposition home or self-care (01) | DRG 378 ==
LOC: ED 18:53 → AC 19:07
PROVIDERS: Surgery; Admitting Provider Internal Medicine; Emergency Provider Emergency Medicine; Family Provider Nurse Practitioner; PCP Nurse Practitioner; Visit Provider Internal Medicine
PROC: 0DJ08ZZ Inspection of Upper Intestinal Tract, Via Natural or Artificial Opening Endoscopic (ICD-10-PCS; CPT 43235; principal; 2017-08-20 12:45)
DX: K26.0 Acute duodenal ulcer with hemorrhage (principal); D62 Acute posthemorrhagic anemia; E78.5 Hyperlipidemia, unspecified; F17.200 Nicotine dependence, unspecified, uncomplicated; K29.80 Duodenitis without bleeding
CPT/HCPCS: 36415; 36430; 36591; 43235; 71045; 80048; 81003; 82962; 83690; 84450; 84460; 84484; 85014; 85025; 85610; 86850; 86900; 86901; 93005; 96374; 99222; 99283; 99284; P9016; C9113; J0330; J2704; J3010